=== PATIENT | male | born 1995 | race Caucasian/White ===

== ENCOUNTER 2021-06-19 23:23 | Emergency (ER) | payer MEDICAID ==
[~2021-06-19] VITALS: Ht 177.8 cm; Wt 75.0 kg
[2021-06-19 23:27] VITALS: BP 142/76
[2021-06-19] MEDS ORDERED: ACETAMINOPHEN 325MG TABLET PO ONE (23:45)
[2021-06-19] MEDS ORDERED: IBUPROFEN 400MG TABLET PO ONE (23:45)
== END 2021-06-20 02:28 | disposition home or self-care (01) ==
LOC: ER 23:23
DX: S86.812A Strain of other muscle(s) and tendon(s) at lower leg level, left leg, initial encounter (principal); S86.811A Strain of other muscle(s) and tendon(s) at lower leg level, right leg, initial encounter; X58.XXXA Exposure to other specified factors, initial encounter; Y93.01 Activity, walking, marching and hiking; Z59.00 Homelessness unspecified; Y92.480 Sidewalk as the place of occurrence of the external cause
CPT/HCPCS: 99283